=== PATIENT | male | born 1965 | race Caucasian/White ===

== ENCOUNTER → 2018-01-30 | Day surgery (SDC) | payer OTHER ==
[~2018-01-30] MED LIST: AVAPRO150 MG PO; FOLIC ACID1 MG PO; HYDROXYCHLOROQUINE PO; LIPITOR40 MG PO; METHOT PO; NEURONTIN300 MG PO; OSTERA TABLET1 EACH PO; PERCOCET 5-3251 EACH PO; POLY119PG PO; SPIRIVIA PO; [UNRECOGNIZED DRUG - OTHER] PO
== END | disposition home or self-care (01) ==
LOC: ADM 01-23 12:30 → CIR.AMB 06:10
DX: K40.90 Unilateral inguinal hernia, without obstruction or gangrene, not specified as recurrent (principal)